=== PATIENT | female | born 1960 | race Two or more races ===

== ENCOUNTER 2019-05-04 13:48 | Emergency (ER) | payer OTHER ==
[~2019-05-04] VITALS: Ht 160 cm; Wt 79.4 kg
[2019-05-04] MEDS ORDERED: cloNIDine HCL 0.1 MG TAB PO ONE (15:00)
[2019-05-04 15:23] LABS: Basophils # (auto) 0.1 uL; Basophils % (auto) 0.6 % (0.0-2.0); Eosinophils # (auto) 0.1 uL; Eosinophils % (auto) 1.8 % (0.0-7.0); Hematocrit 45.3 % (36.0-46.0); Hemoglobin 15.4 g/dL (12.2-16.2); Lymphocytes # (auto) 2.8 uL; Lymphocytes % (auto) 32.6 % (10.0-50.0); Mean Corpuscular Hemoglobin 30.9 pg (28.0-32.0); Mean Corpuscular Hgb Conc. 34.1 g/dL (32.0-36.0); Mean Corpuscular Volume 90.7 fL (80.0-100.0); Monocytes # (auto) 0.5 uL; Monocytes % (auto) 5.9 % (0.0-12.0); Neutrophils % (auto) 59.1 % (37.0-80.0); Nucleated Red Blood Cells % 0.1 %; Platelet Count (auto) 216 10^3/uL (140-450); Red Cell Distribution Width 13.6 % (11.8-14.3); White Blood Cell 8.5 10^3/uL (4.4-10.8)
[2019-05-04 15:48] LABS: Albumin 3.6 g/dL (3.4-5.0); Anion Gap 7 (5-15); Blood Urea Nitrogen 19 mg/dL (7-18); Carbon Dioxide 24 mmol/L (21-32); Chloride 106 mmol/L (98-107); Magnesium 1.9 mg/dL (1.6-2.6); Potassium 3.8 mmol/L (3.5-5.1); Sodium 137 mmol/L (136-145)
[2019-05-04 16:07] LABS: Alanine Aminotransferase 34 U/L (13-56); Alkaline Phosphatase 168 U/L (45-117); Aspartate Aminotransferase 17 U/L (15-37); BUN/Creatinine Ratio 15.7; Bilirubin, Total 0.3 mg/dL (0.2-1.0); GFR African American 58 mL/min; GFR Non-African American 48 mL/min; Total Protein 7.6 g/dL (6.4-8.2)
[2019-05-04 16:30] LABS: Urine Bacteria NONE SEEN /hpf (None Seen); Urine Blood Negative /uL (Negative); Urine Specific Gravity 1.033 (1.001-1.035); Urine WBC 1 /hpf (0 - 5)
[2019-05-04 18:05] LABS: Glucose 421 mg/dL (74-106)
[2019-05-04] MEDS ORDERED: InsuLIN REG 1unit/0.01ml Soln (100units/ml) IV ONE (18:15)
[2019-05-04] MEDS ORDERED: SODIUM CHLORIDE 0.9% 1,000 ML IV ONE (18:15)
[2019-05-04 20:30] VITALS: BP 169/99
== END 2019-05-04 20:17 | disposition home or self-care (01) ==
LOC: ER 13:56
DX: E11.65 Type 2 diabetes mellitus with hyperglycemia (principal); I16.0 Hypertensive urgency
CPT/HCPCS: 36415; 71046; 80053; 81001; 82010; 82962; 83735; 84484; 85025; 96374; 99284; J1815; J7030

== ENCOUNTER 2020-12-06 15:47 | Emergency (ER) | payer OTHER ==
[~2020-12-06] VITALS: Ht 162.6 cm; Wt 59.4 kg
[2020-12-06 16:47] VITALS: BP 159/81
== END 2020-12-06 17:26 | disposition home or self-care (01) ==
LOC: ER 15:47
DX: L02.31 Cutaneous abscess of buttock (principal); E11.9 Type 2 diabetes mellitus without complications; I10 Essential (primary) hypertension
CPT/HCPCS: 10060

== ENCOUNTER 2020-12-09 11:33 | Emergency (ER) | payer OTHER ==
[~2020-12-09] VITALS: Ht 165.1 cm; Wt 77.6 kg
[2020-12-09 12:43] VITALS: BP 119/86
== END 2020-12-09 13:49 | disposition home or self-care (01) ==
LOC: ER 11:33
DX: L02.31 Cutaneous abscess of buttock (principal); I10 Essential (primary) hypertension; E11.9 Type 2 diabetes mellitus without complications

== ENCOUNTER 2020-12-12 12:58 | Emergency (ER) | payer OTHER ==
[~2020-12-12] VITALS: Ht 167.6 cm; Wt 80.3 kg
[2020-12-12 14:50] VITALS: BP 152/86
== END 2020-12-12 15:25 | disposition home or self-care (01) ==
LOC: ER 12:58
DX: L02.31 Cutaneous abscess of buttock (principal); I10 Essential (primary) hypertension; E11.9 Type 2 diabetes mellitus without complications

== ENCOUNTER 2022-09-06 18:52 | Emergency (ER) | payer OTHER ==
[~2022-09-06] VITALS: Ht 160 cm; Wt 81.0 kg
[2022-09-07] MEDS ORDERED: cefTRIAXone SOD 1,000 MG VL IM ONE (01:00)
[2022-09-07] MEDS ORDERED: TETANUS-DIPTH-ACEL PERTUSSIS 0.5ML SYR Tdap IM ONE (01:00)
[2022-09-07] MEDS ORDERED: CEPH-510 PO (01:01)
[2022-09-07] MEDS ORDERED: ACET-1158 PO (01:01)
[2022-09-07] MEDS ORDERED: BACIOIN15 TOP (01:01)
[2022-09-07 02:47] VITALS: BP 163/83
== END 2022-09-07 02:52 | disposition home or self-care (01) ==
LOC: ER 18:52
DX: T22.211A Burn of second degree of right forearm, initial encounter (principal); T23.121A Burn of first degree of single right finger (nail) except thumb, initial encounter; I10 Essential (primary) hypertension; E11.9 Type 2 diabetes mellitus without complications; E78.5 Hyperlipidemia, unspecified; Z79.899 Other long term (current) drug therapy; X11.8XXA Contact with other hot tap-water, initial encounter; Y93.89 Activity, other specified; Y92.89 Other specified places as the place of occurrence of the external cause; Y99.8 Other external cause status
CPT/HCPCS: 90471; 90715; 96372; 99284; J0696

== ENCOUNTER 2022-09-09 14:21 | Emergency (ER) | payer OTHER ==
[~2022-09-09] VITALS: Ht 160 cm; Wt 82.6 kg
[~2022-09-09 14:21] MED LIST: ACET-1158 PO; BACIOIN15 TOP; CEPH-510 PO
[2022-09-09 15:02] VITALS: BP 189/86
== END 2022-09-09 16:38 | disposition home or self-care (01) ==
LOC: ER 14:21
DX: T22.111D Burn of first degree of right forearm, subsequent encounter (principal); I10 Essential (primary) hypertension; E11.9 Type 2 diabetes mellitus without complications; E78.5 Hyperlipidemia, unspecified; Z79.899 Other long term (current) drug therapy; X11.8XXD Contact with other hot tap-water, subsequent encounter